=== PATIENT | male | born 1955 | race African-American/Black ===

== ENCOUNTER 2021-07-19 14:15 | Emergency (ER) | payer OTHER ==
[~2021-07-19] VITALS: Ht 170.2 cm; Wt 95.0 kg
[2021-07-19] MEDS ORDERED: AMLO-186 PO (15:00)
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
[2021-07-19 15:23] VITALS: BP 198/104
== END 2021-07-19 15:28 | disposition home or self-care (01) ==
LOC: ER 14:15
DX: R51.9 Headache, unspecified (principal)
CPT/HCPCS: 99283